=== PATIENT | male | born 1995 | race Caucasian/White ===

== ENCOUNTER 2021-06-20 16:01 | Emergency (ER) | payer OTHER, SELFPAY ==
[~2021-06-20] VITALS: Ht 188 cm; Wt 79.4 kg
[2021-06-20 16:22] VITALS: BP_SYST 129
--- NOTE | 2021-06-20 16:22 | NUR ---
Placed in room 1 . Placed on campus monitor, blood pressure machine and pulse oximeter. To gown for exam. Side rails up. Report given to SARTHAK ABRAHAM.
--- NOTE | 2021-06-20 16:28 | NUR ---
26 years old male alert, oriented x4 presents to er with nausea vomiting, diarrhea after eating old food, vital stable no acute distress.
[2021-06-20] MEDS ORDERED: ONDANSETRON HCL 4 MG/2 ML VIAL IVP ONE (17:15)
[2021-06-20] MEDS ORDERED: NACL 0.9% 1,000 ML IV ONE ×2 (17:15→18:30)
[2021-06-20] MEDS ORDERED: ONDA-8 TL (17:17)
[2021-06-20 17:28] LABS: BASOPHILS # (AUTO) 0.1 K/uL (0.0-0.2); BASOPHILS % (AUTO) 0.9 % (0.0-2.0); EOSINOPHILS # (AUTO) 0.1 K/uL (0.0-0.4); EOSINOPHILS % (AUTO) 0.9 % (0.0-4.0); HEMOGLOBIN 15.6 g/dL (14.0-18.0); LYMPHOCYTES # (AUTO) 0.4 K/uL (1.0-5.5); LYMPHOCYTES % (AUTO) 3.3 % (20.5-51.5); MEAN CORPUSCULAR HEMOGLOBIN 28 pg (27-31); MEAN CORPUSCULAR HGB CONC 35 % (32-36); MEAN CORPUSCULAR VOLUME 82 fL (79.0-98.0); MONOCYTES # (AUTO) 0.4 K/uL (0.0-1.0); MONOCYTES % (AUTO) 3.8 % (1.7-9.3); NEUTROPHILS # (AUTO) 9.9 K/uL (1.8-7.7); NEUTROPHILS % (AUTO) 91.1 % (40.0-70.0); PLATELET COUNT (AUTO) 190 K/uL (130-430); RED BLOOD CELL COUNT(AUTO) 5.52 MIL/uL (4.2-6.2); RED CELL DISTRIBUTION WIDTH 13.4 % (9.0-15.0); WHITE BLOOD COUNT (AUTO) 10.9 K/uL (4.8-10.8)
[2021-06-20 17:42] LABS: CALCIUM 8.3 mg/dL (8.4-11.0); CREATININE 0.86 mg/dL (0.55-1.30)
[2021-06-20 17:48] LABS: ALBUMIN 3.9 g/dL (3.4-4.8); TOTAL BILIRUBIN 1.4 mg/dL (0.0-1.0)
[2021-06-20 18:39] VITALS: BP_SYST 142
--- NOTE | 2021-06-20 18:39 | NUR ---
patient reassess no nausea tolerated po intake, no diarrhea Dr Crockett notified unable to obtain stool sample.
--- NOTE | 2021-06-20 19:19 | NUR ---
RECIEVED REPORTS FROM DAYSUTFT NURSE. PT IN BED RESTING, EYES OPEN, DENIES ANY ABDOMINAL PAIN AT THIS TIME, AND REPORTS NAUSEA IS RELIEVED. NO URGE OF DIARRHEA PRESENT. WILL CONTINUE TO MONITOR.
--- NOTE | 2021-06-20 19:20 | NUR ---
REPORT ENDORSED TO NURSE CHACON AT BEDSIDE ALL QUESTIONS ANSWERED.
== END 2021-06-20 19:55 | disposition home or self-care (01) ==
LOC: SED 16:01
DX: R19.7 Diarrhea, unspecified (principal); R11.2 Nausea with vomiting, unspecified; E86.0 Dehydration; R10.84 Generalized abdominal pain; Z79.899 Other long term (current) drug therapy
CPT/HCPCS: 36415; 80053; 83690; 85025; 96361; 96374; 99283; J2405; J7030